=== PATIENT | female | born 1995 | race Caucasian/White ===

== ENCOUNTER 2023-04-28 15:07 | Emergency (ER) | payer MEDICAID, SELFPAY ==
[2023-04-28 15:11] VITALS: BP 110/87; PULSE 80; RESP 18; TEMP 36.5; O2SAT 98; BMI 20.1
--- NOTE | 2023-04-28 15:11 | ED_ITS ---
HPI - General Adult General Chief complaint: Urogenital-Female Stated complaint: Medical Clearance/ uti? Time Seen by Provider: 04/28/23 15:47 History of Present Illness HPI narrative: patient complains of he burning with urination worse past several days, she has had multiple episodes of burning with urination over the last year but never went to a doctor Today she denies any fever chills no other abdominal pain no flank pain no nausea or vomiting no fever She also wants medical clearance for a short-stay [facility] a [facility], denies any suicidal or homicidal thoughts, she is not hearing voices, she denies any other recent illness no injuries Related Data Previous Rx's Medication Instructions Recorded nitrofurantoin 100 mg PO Q12H 5 days #10 caps 04/28/23 monohydrate/macrocrystals 100 mg capsule (Macrobid) phenazopyridine 200 mg tablet 200 mg PO TID PRN discomfort with 04/28/23 (Pyridium) urination 6 doses #6 tabs Allergies Allergy/AdvReac Type Severity Reaction Status Date / Time No Known Allergies Allergy Verified 04/28/23 15:11 [facility] Past Medical History Source: nursing notes reviewed Social History Social History Advance Directives: No Advance Directives Information Provided: No Physical Exam ED Vital Signs: Vital Signs - 24 hr 04/28/23 15:11 Temperature 97.7 F Pulse Rate 80 Respiratory Rate 18 Blood Pressure 110/87 Pulse Oximetry 98 Oxygen Delivery Method Room Air BMI result Body Mass Index 20.1 general appearance is no acute distress The pharynx is clear Neck is supple Chest is clear to auscultation bilateral Heart no murmur Abdomen soft nontender Extremities full range of motion x4 Skin no rash Course Course Course Narrative: This is an RME: Additional HPI, ROS, PE not included below will be deferred to primary provider. This is a [id number]-female, with a past medical history of anxiety, presenting to the emergency department for medical clearance for CHD placement and ?UTI symptoms intermittently x 1 year. She also reports dysuria, urinary frequency intermittently x 1 year. She is also requesting drug tested as she was smoking marijuana with friends and felt more than what she normally feels . Plan: Labs, UA Patient had normal CBC and chemistry Urinalysis showed moderate leukocyte esterase and 50 wbc's She did have squamous epithelial cells and also says she has had a vaginal discharge for several weeks A bacterial vaginosis panel is sent as well as GC chlamydia, and as patient is symptomatic she is treated for UTI with Macrobid patient self swab for bacterial vaginosis panel, no pelvic exam was done Well-appearing patient with mild UTI is discharged medically cleared to go to her facility Medical Decision Making Lab Data 04/28/23 15:33 04/28/23 15:33 Labs: Lab Results 04/28/23 04/28/23 04/28/23 Range/Units 15:33 15:33 16:01 WBC 10.6 (4.8-10.8) X10*3/uL RBC 4.05 L (4.20-5.50) X10*6/uL Hgb 12.9 (12.0-16.0) g/dl Hct 37.7 (37.0-47.0) % MCV 93.1 (80.0-98.0) fL MCH 31.9 (27.0-33.0) pg MCHC 34.2 (31.0-35.0) g/dl RDW 12.5 (11.0-16.0) % Plt Count 336 (160-400) X10*3/uL MPV 9.9 (9.4-12.3) fL Immature Gran % (Auto) 0.2 (0.0-0.4) % Neut % (Auto) 61.9 (45-73) % Lymph % (Auto) 29.0 (20-40) % [place] % (Auto) 8.2 (2-11) % Eos % (Auto) 0.3 (0-4) % Baso % (Auto) 0.4 (0-2) % Lymph # (Auto) 3.1 (1.2-4.9) X10*3/uL [place] # (Auto) 0.9 (0.1-1.2) X10*3/uL Eos # (Auto) 0.0 (0.0-0.4) X10*3/uL Baso # (Auto) 0.0 (0.0-0.2) X10*3/uL Abs Immat Gran (auto) 0.02 (0.00-0.03) X10*3/uL Absolute Neuts (auto) 6.6 (2.0-8.3) x10*3/uL Absolute Nucleated RBC 0.000 (0.0-0.012) X10*3/uL Nucleated RBC % (auto) 0.0 (0.0-0.2) /100WBC Sodium 137 (135-145) mmol/L Potassium 3.8 (3.3-5.1) mmol/L Chloride 103 (96-108) mmol/L Carbon Dioxide 24 (22-29) mmol/L Anion Gap 14 (12-20) BUN 13 (9-16) mg/dL Creatinine 0.75 (0.5-1.4) mg/dL Estim Creat Clear Calc 92.7 Estimated GFR > 60 Random Glucose 99 (60-115) mg/dL Calcium 9.8 (8.4-10.2) mg/dL Urine Color Yellow Urine Appearance Clear Urine pH 6.0 (5.0-9.0) Ur Specific [place] 1.020 (1.005-1.025) Urine Protein Negative (Neg-Trace) mg/dL Urine Glucose (UA) Negative (Negative) mg/dL Urine Ketones Trace (Negative) mg/dL Urine Blood Negative (Negative) Urine Nitrite Negative (Negative) Ur Leukocyte Esterase Moderate (2+) H (Negative) Urine RBC 0-2 (0-2) /HPF Urine WBC >50 H (0-5) /HPF Ur Squamous Epith Cells 6-10 (0-2) /HPF Urine Bacteria None Seen (None Seen) Hyaline Casts 0-2 (0-2) /LPF Urine Test (NEGATIVE) Ethyl Alcohol < 10 mg/dL 04/28/23 Range/Units 16:01 WBC (4.8-10.8) X10*3/uL RBC (4.20-5.50) X10*6/uL Hgb (12.0-16.0) g/dl Hct (37.0-47.0) % MCV (80.0-98.0) fL MCH (27.0-33.0) pg MCHC (31.0-35.0) g/dl RDW (11.0-16.0) % Plt Count (160-400) X10*3/uL MPV (9.4-12.3) fL Immature Gran % (Auto) (0.0-0.4) % Neut % (Auto) (45-73) % Lymph % (Auto) (20-40) % [place] % (Auto) (2-11) % Eos % (Auto) (0-4) % Baso % (Auto) (0-2) % Lymph # (Auto) (1.2-4.9) X10*3/uL [place] # (Auto) (0.1-1.2) X10*3/uL Eos # (Auto) (0.0-0.4) X10*3/uL Baso # (Auto) (0.0-0.2) X10*3/uL Abs Immat Gran (auto) (0.00-0.03) X10*3/uL Absolute Neuts (auto) (2.0-8.3) x10*3/uL Absolute Nucleated RBC (0.0-0.012) X10*3/uL Nucleated RBC % (auto) (0.0-0.2) /100WBC Sodium (135-145) mmol/L Potassium (3.3-5.1) mmol/L Chloride (96-108) mmol/L Carbon Dioxide (22-29) mmol/L Anion Gap (12-20) BUN (9-16) mg/dL Creatinine (0.5-1.4) mg/dL Estim Creat Clear Calc Estimated GFR Random Glucose (60-115) mg/dL Calcium (8.4-10.2) mg/dL Urine Color Urine Appearance Urine pH (5.0-9.0) Ur Specific [place] (1.005-1.025) Urine Protein (Neg-Trace) mg/dL Urine Glucose (UA) (Negative) mg/dL Urine Ketones (Negative) mg/dL Urine Blood (Negative) Urine Nitrite (Negative) Ur Leukocyte Esterase (Negative) Urine RBC (0-2) /HPF Urine WBC (0-5) /HPF Ur Squamous Epith Cells (0-2) /HPF Urine Bacteria (None Seen) Hyaline Casts (0-2) /LPF Urine Test NEGATIVE (NEGATIVE) Ethyl Alcohol mg/dL Discharge Plan Discharge Clinical Impression: UTI (urinary tract infection) Patient Disposition: Home, Self-Care Additional Instructions: Macrobid is antibiotic for urinary tract infection Pyridium may turn the urine are injury but many patients find it relieves discomfort from a urine infection We will call you if any of the cultures of the discharge come positive Return any time any worse condition or any concerns YOUR FULLY CLEARED MEDICALLY TO GO TO YOUR PROGRAM Prescriptions: New nitrofurantoin monohyd/m-cryst [Macrobid] 100 mg capsule 100 mg PO Q12H 5 Days Qty: 10 0RF Rx Instructions: must administer with a meal/food phenazopyridine [Pyridium] 200 mg tablet 200 mg PO TID PRN (Reason: discomfort with urination) Qty: 6 0RF Stand Alone Forms: Work/School Release
--- NOTE | 2023-04-28 16:11 | PC.NURSE ---
labs obtained, UA sent- pt resting quietly call [facility]ch within reach
--- NOTE | 2023-04-28 16:56 | PC.NURSE ---
BV specimen sent
== END 2023-04-28 17:03 | disposition home or self-care (01) ==
PROVIDERS: Emergency Provider Emergency Medicine
DX: N39.0 Urinary tract infection, site not specified (principal); B96.1 Klebsiella pneumoniae [K. pneumoniae] as the cause of diseases classified elsewhere; F12.90 Cannabis use, unspecified, uncomplicated
CPT/HCPCS: 0353U; 36415; 80048; 80307; 81001; 81025; 85025; 87086; 87088; 87186; 87480; 87510; 87660; 99283